=== PATIENT | male | born 1955 | race Caucasian/White ===

== ENCOUNTER 2017-08-09 07:50 | Day surgery (SDC) | payer OTHER ==
[2017-08-06 11:27] VITALS: BMI 26.6
[2017-08-09] MEDS ORDERED: PROPOFOL 20 ML ONE ×2 (07:54)
[2017-08-09] MEDS ORDERED: LIDOCAINE HCL/PF 2% SDV 5ML VIAL ONE (07:58)
[2017-08-09 09:13] VITALS: BP 108/66; PULSE 66; TEMP 97.9
== END 2017-08-09 09:30 | disposition home or self-care (01) ==
LOC: FASU-ENDO 07:50
PROVIDERS: ATTEND Internal Medicine Gastroenterology
PROC: 0DJD8ZZ Inspection of Lower Intestinal Tract, Via Natural or Artificial Opening Endoscopic (ICD-10-PCS; principal; 2017-08-09 08:29)
DX: Z86.010 Personal history of colon polyps (principal)